=== PATIENT | female | born 1995 ===

== ENCOUNTER → 2021-04-27 | Outpatient (CLI) | payer OTHER | END | disposition home or self-care (01) | LOC: PRENATAL 10:00 | PROVIDERS: ATTEND Obstetrics & Gynecology Maternal & Fetal Medicine | DX: O35.0XX1 Maternal care for (suspected) central nervous system malformation in fetus, fetus 1 (principal); O35.3XX1 Maternal care for (suspected) damage to fetus from viral disease in mother, fetus 1; O98.513 Other viral diseases complicating pregnancy, third trimester; O24.410 Gestational diabetes mellitus in pregnancy, diet controlled; Z36.89 Encounter for other specified antenatal screening; Z3A.37 37 weeks gestation of pregnancy ==

== ENCOUNTER 2021-05-17 07:40 | Inpatient (IN) | payer OTHER ==
[~2021-05-17] VITALS: Ht 154.9 cm; Wt 80.3 kg
[2021-05-17] MEDS ORDERED: LEVOTHYROXINE50 MC1 PO (07:47)
[2021-05-17] MEDS ORDERED: PRENATAL TABLE1 EAC1 PO (07:47)
[2021-05-17] MEDS ORDERED: FOLIC ACID20 MG PO (07:48)
== END 2021-05-19 15:33 | disposition home or self-care (01) | DRG 788 ==
LOC: LDR 07:40 → O/R 17:51 → OB/GYN 19:58
PROVIDERS: ADMIT Obstetrics & Gynecology; ATTEND Obstetrics & Gynecology
PROC: 4A1HXFZ Monitoring of Products of Conception, Cardiac Rhythm, External Approach (ICD-10-PCS; 2021-05-17)
PROC: 10D00Z1 Extraction of Products of Conception, Low, Open Approach (ICD-10-PCS; principal; 2021-05-17 17:30)
DX: O65.9 Obstructed labor due to maternal pelvic abnormality, unspecified (principal); O99.284 Endocrine, nutritional and metabolic diseases complicating childbirth; E03.9 Hypothyroidism, unspecified; Z3A.38 38 weeks gestation of pregnancy; Z37.0 Single live birth; Z20.822 Contact with and (suspected) exposure to COVID-19

== ENCOUNTER 2023-02-06 11:05 | Outpatient (CLI) | payer OTHER ==
[~2023-02-06 11:05] MED LIST: FOLIC ACID20 MG PO; LEVOTHYROXINE50 MC1 PO; PRENATAL TABLE1 EAC1 PO
== END 2023-02-06 12:08 | disposition home or self-care (01) ==
LOC: PRENATAL 11:05
PROVIDERS: ATTEND Obstetrics & Gynecology Maternal & Fetal Medicine
DX: O36.80X0 Pregnancy with inconclusive fetal viability, not applicable or unspecified (principal); O99.280 Endocrine, nutritional and metabolic diseases complicating pregnancy, unspecified trimester; O34.219 Maternal care for unspecified type scar from previous cesarean delivery; Z3A.11 11 weeks gestation of pregnancy

== ENCOUNTER 2023-04-10 13:00 | Outpatient (CLI) | payer OTHER | END 2023-04-10 14:45 | disposition home or self-care (01) | LOC: PRENATAL 13:00 | PROVIDERS: ATTEND Obstetrics & Gynecology Maternal & Fetal Medicine | DX: O36.80X0 Pregnancy with inconclusive fetal viability, not applicable or unspecified (principal); O99.280 Endocrine, nutritional and metabolic diseases complicating pregnancy, unspecified trimester; O34.219 Maternal care for unspecified type scar from previous cesarean delivery; Z3A.20 20 weeks gestation of pregnancy ==

== ENCOUNTER 2023-07-02 13:53 | Outpatient (CLI) | payer OTHER | END 2023-07-02 17:49 | disposition home or self-care (01) | LOC: PRENATAL 13:53 | PROVIDERS: ATTEND Obstetrics & Gynecology Maternal & Fetal Medicine | DX: O26.849 Uterine size-date discrepancy, unspecified trimester (principal); O99.280 Endocrine, nutritional and metabolic diseases complicating pregnancy, unspecified trimester; O36.8199 Decreased fetal movements, unspecified trimester, other fetus; O34.219 Maternal care for unspecified type scar from previous cesarean delivery; Z3A.31 31 weeks gestation of pregnancy ==